=== PATIENT | male | born 1990 | race Caucasian/White ===

== ENCOUNTER → 2020-09-09 18:22 | Outpatient (CLI) | payer BC, SELFPAY ==
--- NOTE | 2020-09-09 18:25 | DI.RAD.S_ITS ---
PROCEDURE: XR RIBS LT MIN 3V W CXR1V INDICATIONS: rib contusion L 8-9, r/o fx TECHNIQUE: 2 views of the left ribs were acquired, along with a single view chest. COMPARISON: None. FINDINGS: Surgical changes and devices: None. Bones and chest wall: No fractures or dislocations. No suspicious bony lesions. Overlying soft tissues appear unremarkable. Lungs and pleura: No pleural effusions or pneumothorax. Lungs appear clear. Mediastinum: Mediastinal contours appear normal. Heart size is normal. IMPRESSION: Normal PA view of the chest and left ribs. Dictated by: Jim Concepcion M.D. on 09/09/2020 at 19:04 Approved by: Jim Concepcion M.D. on 09/09/2020 at 19:14
== END ==
PROVIDERS: PCP Family Medicine; Referring Provider Physician Assistant; Visit Provider Physician Assistant
DX: S20.219A Contusion of unspecified front wall of thorax, initial encounter (principal); X58.XXXA Exposure to other specified factors, initial encounter
CPT/HCPCS: 71101